=== PATIENT | female | born 1960 | race Caucasian/White ===

== ENCOUNTER 2017-08-18 06:32 | Emergency (ER) | payer OTHER ==
[~2017-08-18] VITALS: Ht 162.6 cm; Wt 67.1 kg
[~2017-08-18 06:32] MED LIST: CIPR500T4 PO; PYRI200T4 PO
[2017-08-18 06:38] VITALS: BP 143/87; PULSE 73; RESP 20; TEMP 97.8; O2SAT 99
[2017-08-18] MEDS ORDERED: CETI10CA3 (06:52)
[2017-08-18] MEDS ORDERED: AMIT75TA2 PO (06:52)
[2017-08-18 07:24] LABS: BLOOD, URINE LARGE (NEG); GLUCOSE,URINE NEG (NEG); KETONE, URINE NEG (NEG); NITRITE,URINE NEG (NEG); PH, URINE 5.5 (5.0-8.5)
[2017-08-18 07:27] LABS: METHOD OF COLLECTION CLEAN CATCH; URINE COLOR YELLOW (YELLW/STRAW)
[2017-08-18 07:28] LABS: RBC, URINE 15-19 /hpf (0-3)
[2017-08-18 07:29] LABS: COMMENT (UR) CULT NOT INDICATED; CULTURE IF INDICATED CULT NOT INDICATED; SQUAMOUS EPITHELIAL CELL URINE 0-5 /hpf (0-5)
--- NOTE | 2017-08-18 08:17 | PD ---
HPI Chief Complaint: Flank/Kidney Pain Time Seen by Provider: 07:00 Travel History International Travel<30 days: No Contact w/Intl Traveler<30days: No Traveled to known affect area: No History of Present Illness HPI Patient the [id number] female presents emergency department for evaluation of right flank pain onset early this morning. Patient states she has a history of kidney stones. Denies any dysuria denies any fever denies any vomiting but does endorse some mild nausea. She states it feels very similar to previous kidney stone she's had on the right. She states shortly after arrival here her pain is completely resolved and has not returned. She states she is actually feeling kind of silly that she is coming now. Since the pain has been radiating down into her right lower quadrant. PFSH Past Medical History Asthma: Yes ( A CHILD) Blood Disorders: No Depression: Yes Cancer: No Cardiovascular Problems: Yes Chest Pain: Yes COPD: No Cerebrovascular Accident: No Diabetes: No Endocrine: Yes Gastrointestinal Disorders: Yes (CHOLECYSTECTOMY) Genitourinary: No Immune Disorder: No Musculoskeletal: No Neurologic: No Psychiatric: Yes Reproductive: No Respiratory: Yes Migraines: Yes Seizures: No Sleep Apnea: No Thyroid Disease: Yes (GOITER) Tetanus Vaccination: Unknown Influenza Vaccination: No ?: Not Menopausal: Yes : 2 Para: 2 Past Surgical History Abdominal Surgery: No Cardiac Surgery: No Cholecystectomy: Yes Ear Surgery: No Endocrine Surgery: No Eye Surgery: No Genitourinary Surgery: No Gynecologic Surgery: No Oral Surgery: No Pacemaker: No Thoracic Surgery: No Tonsillectomy: Yes Other Surgery: Yes (kidney stone removal) Social History Alcohol Use: Yes (rarely) Tobacco Use: No Substance Use: No Allergies-Medications (Allergen,Severity, Reaction): Coded Allergies: erythromycin base (Unverified Adverse Reaction, Severe, PALPITATIONS, 08/18) methocarbamol (Unverified Adverse Reaction, Severe, PALPITATIONS, 08/18/17) Reported Meds & Prescriptions Reported Meds & Active Scripts Active Reported Zyrtec (Cetirizine HCl) 10 Mg Capsule Amitriptyline (Amitriptyline HCl) 75 Mg Tab 75 Mg PO HS Review of Systems Except as stated in HPI: all other systems reviewed are Neg Physical Exam Narrative GENERAL: Well-developed well-nourished, quite pleasant female in no distress. SKIN: Focused skin assessment warm/dry. HEAD: Atraumatic. Normocephalic. EYES: Pupils equal and round. No scleral icterus. No injection or drainage. ENT: No nasal bleeding or discharge. Mucous membranes pink and moist. NECK: Trachea midline. No JVD. CARDIOVASCULAR: Regular rate and rhythm. No murmur appreciated. RESPIRATORY: No accessory muscle use. Clear to auscultation. Breath sounds equal bilaterally. GASTROINTESTINAL: Abdomen soft, non-tender, nondistended. Hepatic and splenic margins not palpable. No CVA tenderness bilaterally. No peritoneal signs. MUSCULOSKELETAL: No obvious deformities. No clubbing. No cyanosis. No edema. NEUROLOGICAL: Awake and alert. No obvious cranial nerve deficits. Motor grossly within normal limits. Normal speech. PSYCHIATRIC: Appropriate mood and affect; insight and judgment normal. Data Data Last Documented VS Vital Signs Date Time Temp Pulse Resp B/P (MAP) Pulse Ox O2 Delivery O2 Flow Rate FiO2 08/18/17 06:38 97.8 73 20 143/87 (105) 99 Orders Orders Urinalysis - C+S If Indicated (08/18/17 06:57) Labs Laboratory Tests Test 08/18/17 07:20 Urine Collection Type CLEAN CATCH Urine Color YELLOW Urine Turbidity CLEAR Urine pH 5.5 Urine Specific Keller 1.027 Urine Protein NEG mg/dL Urine Glucose (UA) NEG mg/dL Urine Ketones NEG mg/dL Urine Occult Blood LARGE Urine Nitrite NEG Urine Bilirubin NEG Urine Leukocyte Esterase NEG Urine RBC 15-19 /hpf Urine WBC 3-5 /hpf Urine Squamous Epithelial Cells 0-5 /hpf Microscopic Urinalysis Comment CULT NOT INDICATED MDM Medical Decision Making Medical Screen Exam Complete: Yes Emergency Medical Condition: Yes Differential Diagnosis Renal colic, kidney stone, urinary tract infection. Narrative Course Patient roomed in the emergency department, she appears well and in no distress. Pain is completely resolved on arrival. She does have some mild hematuria but no evidence of urinary tract infection. No indication further workup at this time as patient feels well has a benign exam. Discussed with her need for follow-up and return to ED criteria. She stable for discharge. Diagnosis Primary Impression: Right flank pain Additional Instructions: Follow up with your regular physician or urologist by phone this week. Feel free to return to the ER should your pain return. Disposition: 01 DISCHARGE HOME Condition: Stable Mathew Baugh MD Aug 18, 2017 07:33
== END 2017-08-18 07:40 | disposition home or self-care (01) ==
LOC: PHED 06:32
DX: R10.31 Right lower quadrant pain (principal); R31.9 Hematuria, unspecified; R11.0 Nausea; E07.9 Disorder of thyroid, unspecified; Z87.442 Personal history of urinary calculi; Z87.09 Personal history of other diseases of the respiratory system; Z86.59 Personal history of other mental and behavioral disorders; Z86.79 Personal history of other diseases of the circulatory system; Z87.19 Personal history of other diseases of the digestive system; Z86.69 Personal history of other diseases of the nervous system and sense organs
CPT/HCPCS: 81001; 99283